=== PATIENT | female | born 1965 | race Caucasian/White ===

== ENCOUNTER → 2017-05-22 | Outpatient (CLI) | payer OTHER | LOC: FIMAGING 12:38 | PROVIDERS: ATTEND Obstetrics & Gynecology | DX: Z12.31 Encounter for screening mammogram for malignant neoplasm of breast (principal); R92.8 Other abnormal and inconclusive findings on diagnostic imaging of breast | CPT/HCPCS: G0202 ==

== ENCOUNTER → 2017-06-09 | Outpatient (CLI) | payer OTHER ==
[~2017-06-09] MED LIST: GADOBUTROL 10 ML VIAL IVP ONE
== END ==
LOC: FIMAGING 07:09
PROVIDERS: ATTEND Obstetrics & Gynecology
DX: R92.8 Other abnormal and inconclusive findings on diagnostic imaging of breast (principal)
CPT/HCPCS: 0159T; 77059; A9585; C8908

== ENCOUNTER → 2017-06-11 | Outpatient (CLI) | payer OTHER | LOC: FIMAGING 15:04 | PROVIDERS: ATTEND Midwife | DX: R92.8 Other abnormal and inconclusive findings on diagnostic imaging of breast (principal) ==

== ENCOUNTER → 2017-06-22 | Outpatient (CLI) | payer OTHER ==
[~2017-06-22] MED LIST changes: +BUPIVACAINE 0.5% 10 ML SDV ONE; -GADOBUTROL 10 ML VIAL IVP ONE; +LIDOCAINE 1% 300 MG/30 ML SDV ONE; +THROMBIN (BOVINE) 5,000 UNIT VIAL TP ONE
== END ==
LOC: FIMAGING 07:32
PROVIDERS: ATTEND Midwife
PROC: 0HBT3ZX Excision of Right Breast, Percutaneous Approach, Diagnostic (ICD-10-PCS; principal; 2017-06-22)
PROC: BH00ZZZ Plain Radiography of Right Breast (ICD-10-PCS; principal; 2017-06-22)
DX: C50.911 Malignant neoplasm of unspecified site of right female breast (principal); Z17.0 Estrogen receptor positive status [ER+]

== ENCOUNTER 2017-07-16 07:58 | Outpatient (CLI) | payer OTHER ==
[2017-07-16] MEDS ORDERED: GADOBUTROL 10 ML VIAL IVP ONE ×2 (08:03→09:47)
[2017-07-16] MEDS ORDERED: FLUMAZENIL 0.5 MG/5 ML MDV IVP PRN ×2 (08:14→09:07)
[2017-07-16] MEDS ORDERED: fentaNYL 100 MCG/2 ML INJ IVP PRN ×2 (08:14→09:07)
[2017-07-16] MEDS ORDERED: PROTAMINE SULFATE 50 MG/5 ML VIAL IVP PRN ×2 (08:14→09:07)
[2017-07-16] MEDS ORDERED: MEPERIDINE 25 MG/ML SYR IVP PRN ×2 (08:14→09:07)
[2017-07-16] MEDS ORDERED: NALOXONE HCL 0.4 MG/ML INJ IVP PRN ×2 (08:14→09:07)
[2017-07-16] MEDS ORDERED: MIDAZOLAM 2 MG/2 ML VIAL IVP PRN ×2 (08:14→09:07)
[2017-07-16] MEDS ORDERED: NS 1,000 ML IV SCH ×2 (08:15→09:15)
[2017-07-16] MEDS ORDERED: NA BICARBONATE 50 MEQ/50 ML VIAL ONE (08:26)
[2017-07-16] MEDS ORDERED: LIDOCAINE 1% 5 ML SDV ONE (08:27)
[2017-07-16] MEDS ORDERED: BUPIVACAINE 0.5% 30 ML SDV ONE (08:27)
[2017-07-16 08:40] VITALS: BP 126/79; PULSE 50; RESP 12; TEMP 98; O2SAT 96
--- NOTE | 2017-07-16 10:35 | PDGENHP ---
History & Physical Chief Complaint: breast cancer History of Present Illness: breast cancer, abnormal mri Cardiorespiratory Assessment: reg heartrate, clear lungs
--- NOTE | 2017-07-16 10:35 | PDPROPOC ---
Sedation Plan of Care Sedation Plan of Care: vital signs stable, mental status noted, patient educated of risks, benefits, alternatives, patient can tolerate sedation ASA Classification: ASA 1 Planned drugs: fentanyl, midazolam Mallampati Score: Class 1 Mallampati Reference Image: Patient passed 3-3-2 rule?: Yes
[2017-07-16] MEDS ORDERED: ACETAMINOPHEN 325 MG TAB PO PRN (10:36)
[2017-07-16] MEDS ORDERED: ONDANSETRON 4 MG/2 ML VIAL IVP PRN (10:36)
== END 2017-07-16 11:15 | disposition home or self-care (01) ==
LOC: FIMAGING 07:58
PROVIDERS: ATTEND Surgery
PROC: 0HBT3ZX Excision of Right Breast, Percutaneous Approach, Diagnostic (ICD-10-PCS; principal; 2017-07-16)
PROC: BH00ZZZ Plain Radiography of Right Breast (ICD-10-PCS; principal; 2017-07-16)
DX: D24.1 Benign neoplasm of right breast (principal); C50.411 Malignant neoplasm of upper-outer quadrant of right female breast
CPT/HCPCS: A9585; J2250; J2310; J3010

== ENCOUNTER 2017-07-27 07:11 | Day surgery (SDC) | payer OTHER ==
[2017-07-27] MEDS ORDERED: LIDOCAINE 1% 300 MG/30 ML SDV ONE (07:32)
[2017-07-27] MEDS ORDERED: LR 1,000 ML IV ONE (07:33)
[2017-07-27] MEDS ORDERED: LIDOCAINE 1% 2 ML INJ ID PRN (07:33)
[2017-07-27] MEDS ORDERED: BUPIVACAINE/EPI 0.5% 30 ML SDV ONE (08:13)
[2017-07-27] MEDS ORDERED: MIDAZOLAM 2 MG/2 ML VIAL IVP ONE (10:01)
[2017-07-27] MEDS ORDERED: MIDAZOLAM 2 MG/2 ML VIAL ONE (10:01)
--- NOTE | 2017-07-27 10:04 | PDANEPAE ---
ANE History of Present Illness Right breast Lumpectomy with sentinel node ANE Past Medical History - Cardiovascular History Hx Hypertension: No Hx Arrhythmias: No Hx Chest Pain: No Hx Coronary Artery / Peripheral Vascular Disease: No Hx CHF / Valvular Disease: No Hx Palpitations: No - Pulmonary History Hx COPD: No Hx Asthma/Reactive Airway Disease: No Hx Recent Upper Respiratory Infection: No Hx Oxygen in Use at Home: No Hx Sleep Apnea: No Sleep Apnea Screening Result - Last Documented: Negative - Neurologic History Hx Cerebrovascular Accident: No Hx Seizures: No Hx Dementia: No - Endocrine History Hx Diabetes: No Hypothyroid: No Hyperthyroid: No Obesity: no - Renal History Hx Renal Disorders: No - Liver History Hx Hepatic Disorders: No - Neurological & Psychiatric Hx Hx Neurological and Psychiatric Disorders: No - Cancer History Hx Cancer: Yes Cancer History Comment: BREAST CA- RT - Congenital Disorder History Hx Congenital Disorders: No - GI History GERD: no Hx Gastrointestinal Disorders: No - Other Health History Other Health History: NEG - Chronic Pain History Chronic Pain: No - Surgical History Prior Surgeries: RT ANKLE ORIF WITH POST HARDWARE REMVL. REMVL MELANOMA LT THIGH. LT KNEE SCOPE. REMVL UTERINE POLYP ANE Review of Systems Review of Systems: - Exercise capacity METS (RN): 6 METS ANE Patient History - Allergies Allergies/Adverse Reactions: No Known Allergies Allergy (Verified 07/09/17 09:29) - Home Medications Home Medications: Herbals/Supplements -Info Only DAILY 07/23/17 [Last Taken 07/22/17] - NPO status NPO Since - Liquids (Date): 07/26/17 NPO Since - Liquids (Time): 19:30 NPO Since - Solids (Date): 07/26/17 NPO Since - Solids (Time): 19:30 - Anes Hx Anes Hx: no prior problems - Smoking Hx Smoking Status: Never smoked Marijuana use: No - Alcohol Use Alcohol Use: Occasionally - Family Anes Hx Family Anes Hx: none Family Hx Anesthesia Complications: SISTER ANE Labs/Vital Signs - Vital Signs Blood Pressure: 116/69 Heart Rate: 52 Respiratory Rate: 14 O2 Sat (%): 98 Height: 158.75 cm Weight: 48.081 kg ANE Physical Exam - Airway Neck exam: FROM Mallampati Score: Class 1 Mouth exam: normal dental/mouth exam - Pulmonary Pulmonary: no respiratory distress - Cardiovascular Cardiovascular: regular rate and rhythym, no murmur, rub, or gallop - ASA Status ASA Status: II ANE Anesthesia Plan Anesthesia Plan: GA w LMA
--- NOTE | 2017-07-27 10:13 | PDHPUP ---
History & Physical Update H&P update statement: This history and physical update is based on an assessment of the patient which was completed after admission or registration (within 24 hours), but prior to the surgery/procedure. H&P update: H&P reviewed & patient examined, no change in patient's condition since H&P completed
[2017-07-27] MEDS ORDERED: PROPOFOL/EMULSION 500 MG/50 ML BOTTLE IV ONE (10:20)
[2017-07-27] MEDS ORDERED: ONDANSETRON 4 MG/2 ML VIAL ONE ×2 (10:20→10:38)
[2017-07-27] MEDS ORDERED: fentaNYL 100 MCG/2 ML INJ ONE ×2 (10:20)
[2017-07-27] MEDS ORDERED: DEXAMETHASONE 4 MG/ML VIAL ONE (10:21)
[2017-07-27] MEDS ORDERED: GLYCOPYRROLATE 0.2 MG/1 ML VIAL ONE (10:21)
[2017-07-27] MEDS ORDERED: LIDOCAINE 2% 5 ML SDV ONE (10:25)
[2017-07-27] MEDS ORDERED: KETOROLAC 30 MG/1 ML SDV ONE (11:15)
[2017-07-27] MEDS ORDERED: PROPOFOL 200 MG/20 ML VIAL ONE (11:49)
[2017-07-27] MEDS ORDERED: ONDANSETRON 4 MG/2 ML VIAL IVP PRN (12:21)
[2017-07-27] MEDS ORDERED: PROMETHAZINE HCL 25 MG/ML INJ IVP PRN (12:21)
[2017-07-27] MEDS ORDERED: HYDROmorphONE/DILAUDID 1 MG/ML INJ IVP PRN (12:21)
[2017-07-27] MEDS ORDERED: NALOXONE HCL 0.4 MG/ML INJ IVP PRN (12:21)
[2017-07-27] MEDS ORDERED: HYDROCODONE/APAP 5/325 TAB PO PRN (12:21)
[2017-07-27] MEDS ORDERED: LR 500 ML IV PRN (12:21)
[2017-07-27] MEDS ORDERED: fentaNYL 100 MCG/2 ML INJ IVP PRN (12:21)
[2017-07-27] MEDS ORDERED: OXYCODONE/APAP 5/325 TAB PO PRN (12:21)
--- NOTE | 2017-07-27 12:23 | POSTANESTH ---
Post Anesthetic Evaluation Cardiovascular Status: Normal, Stable Respiratory Status: Normal, Stable Level of Consciousness/Mental Status: Can Participate in Eval Pain Control: Adequate, Prn Tx Ordered Nausea/Vomiting Control: Adequate, Prn Tx Ordered Complications Possibly Related to Anesthesia: None Noted
--- NOTE | 2017-07-27 12:25 | POSTOPPROG ---
Post Op Note Date of Operation: 07/27/17 Surgeon: Musa Brown Finisher Screwdown: Dali Lawler MSIII Anesthesiologist: Dr. Olivia Anesthesia: LMA Pre-op Diagnosis: R breast CA Post-op Diagnosis: same Procedure: R SLN bx and NL lumpectomy Findings: Node negative Inf/Abcess present in the surg proc area at time of surgery?: No EBL: Minimal
[2017-07-27 13:20] VITALS: BP 134/85; PULSE 48; RESP 16; TEMP 98.6; O2SAT 100
[2017-07-27] MEDS ORDERED: HYDROCODONE/APAP 5/325 TAB ONE (13:24)
--- NOTE | 2017-07-27 17:28 | GOP ---
[f rep st] OPERATIVE REPORT DATE OF OPERATION: 07/27/2017 SURGEON: Itz Brown MD AUDIT SPECIALIST: Sayra Lawler, MS 3. ANESTHESIA: Laryngeal mask anesthesia. ANESTHESIOLOGIST: Dr. Olivia. PREOPERATIVE DIAGNOSIS: Right-sided breast cancer. POSTOPERATIVE DIAGNOSIS: Right-sided breast cancer. PROCEDURE PERFORMED: 1. Right-sided needle localization lumpectomy. 2. Right sentinel lymph node biopsy. FINDINGS: Patient had an enlarged lymph node that was negative on frozen section. No other lesions were identified. ESTIMATED BLOOD LOSS: 20 cc. INDICATIONS: This is a 51-year-old female with a history of right-sided breast cancer. Risks and be nefits of the procedure were discussed with the patient, questions were answered, she wished to proce ed. DESCRIPTION OF PROCEDURE: Patient was in the supine position. After induction of adequate laryngeal mask anesthesia, the patient was prepped and draped in the standard surgical fashion. 0.5% Marcaine was injected throughout the right axillary area for local anesthesia. A transverse incision was mad e with a #15 blade and carried down to the subcutaneous tissue with Bovie cautery and blunt dissectio n. The dissection was carried down to the axillary fat pad. Once it was entered, the Neoprobe was u sed to identify the lymphatic uptake. The node was identified as approximately 15 mm. This node was carefully bluntly dissected, and apparent lymphatics were clipped and then divided. The lymph node was then removed from the axilla and once again confirmed that it had significant uptake on the Neopr obe. It was sent for frozen section. The remaining axillary bed was then inspected with the Neoprob e and no other significantly active lesions were noted. The area was thoroughly irrigated and aspira navid. Hemostasis was achieved with cautery. The subcutaneous tissue was approximated in layers using 3-0 Vicryl in an interrupted fashion. Skin was closed with 4-0 Monocryl in a subcuticular stitch. Frozen section returned negative. The needle localization lumpectomy was addressed next. As the lesion was close to the skin surface, an ellipse of skin was excised with a #15 blade after injecting 0.5% Marcaine for local anesthesia. This was then carried down to the subcutaneous tissue with Bovie cautery. The remainder of the speci men was then removed around the wire site using sharp dissection. Special care was ensured in the in ferior and anterior areas, as this had possible DCIS on MRI. The entire lesion was then excised. It was then marked with the standard ink set marking anterior, posterior, inferior, superior, medial, a nd lateral. It was then fixed and sent to Pathology for permanent section. The cavity was inspected and cauterized for hemostasis, thoroughly irrigated and aspirated. Good hem ostasis was noted. The subcutaneous tissue was approximated in layers using 3-0 Vicryl in an interru pted fashion. Skin was closed with 4-0 Monocryl and subcuticular stitch. The toe was also sterilely dressed and the patient was extubated and taken to the PACU in stable condition. COMPLICATIONS: None. DRAINS: None. /[id number]/MODL
== END 2017-07-27 14:21 | disposition home or self-care (01) ==
LOC: FSGY 07:11
PROVIDERS: ATTEND Surgery
DX: C50.411 Malignant neoplasm of upper-outer quadrant of right female breast (principal)
CPT/HCPCS: 19125; 38525; 76098; A9520; J1100; J1885; J2250; J2405; J2704; J3010

== ENCOUNTER → 2018-04-09 | Outpatient (CLI) | payer OTHER | LOC: FIMAGING 14:34 | PROVIDERS: ATTEND Internal Medicine Hematology & Oncology | DX: Z08 Encounter for follow-up examination after completed treatment for malignant neoplasm (principal); Z85.3 Personal history of malignant neoplasm of breast; Z17.0 Estrogen receptor positive status [ER+] ==